=== PATIENT | female | born 1955 | race Caucasian/White ===

== ENCOUNTER 2023-06-30 05:19 | Observation (INO) | payer OTHER ==
[2023-06-30 05:36] VITALS: BMI 23.4
[2023-06-30] MEDS ORDERED: ACETAMINOPHEN 1000 MG/100 ML BAG IVPB ONE (06:11)
[2023-06-30] MEDS ORDERED: FAMOTIDINE 20 MG/50 ML IVPB 20 MG/50 ML MG IVPB ONE ×2 (06:11→07:53)
[2023-06-30 07:32] LABS: BASO % 1.1 % (0-2.0); EOS % 4.7 % (0-4.5); HEMATOCRIT 33.2 % (32.4-45.2); HEMOGLOBIN 10.4 GM/dL (10.7-15.3); LYMPH % 20.6 % (8-40); MCH 27.2 pg (25.7-33.7); MCHC 31.4 g/dl (32.0-36.0); MEAN CELL VOLUME 86.6 fl (80-96); MEAN PLT VOLUME 7.6 fl (7.5-11.1); MONO % 10.8 % (3.8-10.2); NEUT % 62.8 % (42.8-82.8); PLATELET COUNT 264 10^3/uL (134-434); RBC 3.84 M/mm3 (3.60-5.2); WHITE BLOOD COUNT 6.8 K/mm3 (4.0-10.0)
[2023-06-30 07:42] LABS: POTASSIUM 4.2 mmol/L (3.5-5.1)
[2023-06-30 07:44] LABS: ALBUMIN 3.8 g/dl (3.4-5.0); CALCIUM 8.7 mg/dL (8.5-10.1)
[2023-06-30 07:45] LABS: BLOOD UREA NITROGEN 12.2 mg/dL (7-18); INR 1.03 (0.83-1.09)
[2023-06-30 07:47] LABS: CREATININE 0.7 mg/dL (0.55-1.3)
[2023-06-30 07:49] LABS: BILIRUBIN,TOTAL 0.3 mg/dL (0.2-1); TOT PROT 6.7 g/dl (6.4-8.2)
[2023-06-30] MEDS ORDERED: ACETAMINOPHEN INJECTION 100 ML IVPB ONE (07:53)
[2023-06-30 08:46] LABS: ANISOCYTOSIS 2+; MACROCYTOSIS 0
[2023-06-30] MEDS ORDERED: morphine CARPU-JECT 2 MG/1 ML DISP.SYRIN IVPUSH ONE (11:07)
[2023-06-30] MEDS ORDERED: ASPIRIN 81 MG CHEWABLE TABLETS PO ONE ×2 (13:02→15:15)
[2023-06-30] MEDS ORDERED: MAG HYDROX/AL HYDROX/SIMETH 30 ML UNIT-DOSE CUP PO PRN (14:09)
[2023-06-30] MEDS ORDERED: PANTOPRAZOLE SODIUM 40 MG VIAL IVPUSH ONE (14:09)
[2023-06-30] MEDS ORDERED: ALBUTEROL SO4 HFA INHALER IH PRN (14:40)
[2023-06-30] MEDS: CLOPIDOGREL BISULFATE 75 MG TABLET (FP) PO SCH (15:07)
[2023-06-30] MEDS: amLODIPine BESYLATE 10 MG TABLET (FP) PO SCH (15:07)
[2023-06-30] MEDS ORDERED: hydrOXYzine PAMOATE 25 MG CAPSULE (FP) PO SCH (15:30)
[2023-06-30] MEDS ORDERED: PATIENT'S OWN MEDICATION (NON-FORMULARY) (Clonazepam [Clonazepam] 1 MG) PO PRN (16:21)
[2023-06-30] MEDS: clonazePAM 0.5 MG TABLET PO PRN (17:16)
[2023-06-30] MEDS: LURASIDONE HCL 40 MG TABLET PO SCH (17:45)
[2023-06-30 19:45] LABS: N-TERMINAL BNP 35.3 pg/ml (5-125)
[2023-06-30] MEDS: ATORVASTATIN CA 40 MG TABLET (FP) PO SCH (21:55)
[2023-06-30] MEDS: hydrOXYzine PAMOATE 25 MG CAPSULE (FP) PO SCH (21:55)
[2023-06-30] MEDS ORDERED: clonazePAM 0.5 MG TABLET PO SCH (22:00)
[2023-07-01 08:51] LABS: BASO % 0.8 % (0-2.0); HEMATOCRIT 35.3 % (32.4-45.2); LYMPH % 16.7 % (8-40); MCH 27.4 pg (25.7-33.7); MCHC 31.1 g/dl (32.0-36.0); MONO % 7.2 % (3.8-10.2); NEUT % 71.3 % (42.8-82.8); PLATELET COUNT 285 10^3/uL (134-434); RBC 4.01 M/mm3 (3.60-5.2); RDW 20.3 % (11.6-15.6); WHITE BLOOD COUNT 5.5 K/mm3 (4.0-10.0)
[2023-07-01 09:19] LABS: POTASSIUM 4.2 mmol/L (3.5-5.1)
[2023-07-01 09:33] LABS: ALBUMIN 3.5 g/dl (3.4-5.0); BLOOD UREA NITROGEN 11.9 mg/dL (7-18); MAGNESIUM 2.2 mg/dL (1.8-2.4)
[2023-07-01 09:34] LABS: BILIRUBIN,TOTAL 0.3 mg/dL (0.2-1); TOT PROT 6.4 g/dl (6.4-8.2)
[2023-07-01 09:35] LABS: N-TERMINAL BNP 33.1 pg/ml (5-125)
[2023-07-01 09:36] LABS: CREATININE 0.7 mg/dL (0.55-1.3)
[2023-07-01 09:54] LABS: PHOSPHOROUS 4.1 mg/dL (2.5-4.9)
[2023-07-01] MEDS ORDERED: SIMETHICONE 80 MG TAB.CHEW (FP) PO PRN (10:09)
[2023-07-01] MEDS: ENOXAPARIN NA (PORCINE) 40 MG/0.4 ML DISP.SYRIN SQ SCH (10:31)
[2023-07-01] MEDS: LURASIDONE HCL 40 MG TABLET PO SCH (10:31)
[2023-07-01] MEDS: CLOPIDOGREL BISULFATE 75 MG TABLET (FP) PO SCH (10:32)
[2023-07-01] MEDS: amLODIPine BESYLATE 10 MG TABLET (FP) PO SCH (10:32)
[2023-07-01] MEDS: clonazePAM 0.5 MG TABLET PO PRN ×2 (12:01→21:27)
[2023-07-01] MEDS: ATORVASTATIN CA 40 MG TABLET (FP) PO SCH (21:28)
[2023-07-01] MEDS: hydrOXYzine PAMOATE 25 MG CAPSULE (FP) PO SCH (21:28)
[2023-07-02 09:18] LABS: HEMATOCRIT 34.1 % (32.4-45.2); HEMOGLOBIN 11.2 GM/dL (10.7-15.3); MCH 28.4 pg (25.7-33.7); MCHC 32.9 g/dl (32.0-36.0); MEAN CELL VOLUME 86.2 fl (80-96); MEAN PLT VOLUME 7.8 fl (7.5-11.1); PLATELET COUNT 255 10^3/uL (134-434); RBC 3.95 M/mm3 (3.60-5.2); RDW 19.9 % (11.6-15.6)
[2023-07-02] MEDS: amLODIPine BESYLATE 10 MG TABLET (FP) PO SCH (09:23)
[2023-07-02] MEDS: ENOXAPARIN NA (PORCINE) 40 MG/0.4 ML DISP.SYRIN SQ SCH ×2 (09:23→09:28)
[2023-07-02] MEDS: LURASIDONE HCL 40 MG TABLET PO SCH (09:23)
[2023-07-02] MEDS: CLOPIDOGREL BISULFATE 75 MG TABLET (FP) PO SCH (09:23)
[2023-07-02] MEDS: clonazePAM 0.5 MG TABLET PO PRN (09:28)
[2023-07-02 09:35] LABS: POTASSIUM 4.1 mmol/L (3.5-5.1)
[2023-07-02 09:40] LABS: BLOOD UREA NITROGEN 11.1 mg/dL (7-18)
[2023-07-02 09:41] LABS: ALBUMIN 3.7 g/dl (3.4-5.0); CALCIUM 8.8 mg/dL (8.5-10.1); MAGNESIUM 2.1 mg/dL (1.8-2.4)
[2023-07-02 09:43] LABS: CREATININE 0.7 mg/dL (0.55-1.3)
[2023-07-02 09:44] LABS: PHOSPHOROUS 3.8 mg/dL (2.5-4.9)
[2023-07-02 09:45] LABS: BILIRUBIN,TOTAL 0.2 mg/dL (0.2-1); TOT PROT 6.5 g/dl (6.4-8.2)
[2023-07-02] MEDS ORDERED: FAMOTIDINE 20 MG TABLET PO SCH (10:00)
[2023-07-02 15:42] VITALS: BP 165/103; PULSE 116; RESP 19; TEMP 97.8
== END 2023-07-02 17:31 | disposition home or self-care (01) ==
LOC: JER 05:19 → JERBED 12:12 → J4W 14:25
PROVIDERS: ADMIT Internal Medicine; ATTEND Internal Medicine
PROC: 3E033NZ Introduction of Analgesics, Hypnotics, Sedatives into Peripheral Vein, Percutaneous Approach (ICD-10-PCS; principal; 2023-06-30)
PROC: 3E033GC Introduction of Other Therapeutic Substance into Peripheral Vein, Percutaneous Approach (ICD-10-PCS; 2023-06-30)
DX: R07.89 Other chest pain (principal); R10.9 Unspecified abdominal pain; J96.10 Chronic respiratory failure, unspecified whether with hypoxia or hypercapnia; I25.10 Atherosclerotic heart disease of native coronary artery without angina pectoris; J44.9 Chronic obstructive pulmonary disease, unspecified; E78.5 Hyperlipidemia, unspecified; F41.8 Other specified anxiety disorders; F20.9 Schizophrenia, unspecified; Z87.01 Personal history of pneumonia (recurrent); I25.2 Old myocardial infarction; Z90.49 Acquired absence of other specified parts of digestive tract; I10 Essential (primary) hypertension; Z99.81 Dependence on supplemental oxygen; Z86.16 Personal history of COVID-19; K59.00 Constipation, unspecified; Z87.891 Personal history of nicotine dependence; Z88.0 Allergy status to penicillin
CPT/HCPCS: 36415; 71045-TC-FY; 74177-TC; 74178-TC; 80053; 80061; 83036; 83690; 83735; 83880; 84100; 84436; 84443; 84484; 85025; 85027; 85610; 86140; 87045; 87046; 87205; 87324; 87449; 93005; 93010; 93306-TC; 96365; 96375; 99285-25; G0378; Q9967

== ENCOUNTER 2023-11-14 12:59 | Inpatient (IN) | payer OTHER ==
[2023-11-14] MEDS ORDERED: DEXAMETHASONE SOD PHOSPHATE 10 MG/1 ML VIAL IVPUSH ONE (13:00)
[2023-11-14] MEDS ORDERED: DEXAMETHASONE SOD PHOSPHATE 10 MG/1 ML VIAL ONE (13:02)
[2023-11-14] MEDS: ALBUTEROL SO4 2.5/IPRATROPIUM 0.5 INH SOL 3 ML VIAL.NEB. NEB SCH ×4 (13:10→14:35)
[2023-11-14] MEDS ORDERED: ALBUTEROL SO4 2.5/IPRATROPIUM 0.5 INH SOL 3 ML VIAL.NEB. NEB ONE (14:06)
[2023-11-14 14:36] LABS: HEMATOCRIT 37.5 % (32.4-45.2); HEMOGLOBIN 12.5 G/dL (10.7-15.3); MCH 30.7 pg (25.7-33.7); MCHC 33.2 g/dl (32.0-36.0); MEAN CELL VOLUME 92.7 fl (80-96); MEAN PLT VOLUME 8.2 fl (7.5-11.1); PLATELET COUNT 318.9 10^3/uL (134-434); RBC 4.05 10^6/uL (3.60-5.2); RDW 14.7 % (11.6-15.6); WHITE BLOOD COUNT 10.2 10^3/uL (4.0-10.8)
[2023-11-14 14:51] LABS: ALBUMIN 4.4 g/dl (3.4-5.0); BILIRUBIN,TOTAL 0.5 mg/dl (0.2-1); CALCIUM 9.5 mg/dl (8.5-10.1); CREATININE 0.7 mg/dl (0.6-1.3)
[2023-11-14 15:02] LABS: POTASSIUM 5.6 mmol/L (3.5-5.1)
[2023-11-14 15:15] LABS: PLATELET ESTIMATE SLT INCREASE
[2023-11-14] MEDS ORDERED: clonazePAM 0.5 MG TABLET PO ONE (16:22)
[2023-11-14 16:29] LABS: CALCIUM 9.3 mg/dl (8.5-10.1); CREATININE 0.8 mg/dl (0.6-1.3); POTASSIUM 3.5 mmol/L (3.5-5.1)
[2023-11-14] MEDS ORDERED: clonazePAM 0.5 MG TABLET ONE (16:39)
[2023-11-14 18:34] VITALS: BMI 24.4
[2023-11-14] MEDS ORDERED: ALBUTEROL SO4 2.5/IPRATROPIUM 0.5 INH SOL 3 ML VIAL.NEB. NEB PRN (20:30)
[2023-11-14] MEDS: ATORVASTATIN CA 40 MG TABLET (FP) PO SCH (21:28)
[2023-11-15] MEDS ORDERED: hydrOXYzine PAMOATE 50 MG CAPSULE (FP) PO ONE (00:40)
[2023-11-15] MEDS ORDERED: hydrOXYzine PAMOATE 25 MG CAPSULE (FP) PO ONE (01:07)
[2023-11-15] MEDS: LOSARTAN POTASSIUM 50 MG TABLET PO SCH (09:29)
[2023-11-15] MEDS: CLOPIDOGREL BISULFATE 75 MG TABLET (FP) PO SCH (09:29)
[2023-11-15] MEDS: amLODIPine BESYLATE 10 MG TABLET (FP) PO SCH (09:29)
[2023-11-15] MEDS: FLUTICASONE/UMECLIDIN/VILANTER(200-62.5-25 TRELEGY ELLIPTA) INAHLER IH SCH (09:29)
[2023-11-15] MEDS: clonazePAM 0.5 MG TABLET PO PRN ×4 (09:29→21:23)
[2023-11-15] MEDS: methylPREDNISolone NA SUCC 40 MG/1 ML VIAL IVPUSH SCH ×3 (09:29→21:21)
[2023-11-15] MEDS: ENOXAPARIN NA (PORCINE) 40 MG/0.4 ML DISP.SYRIN SQ SCH (09:30)
[2023-11-15] MEDS: AZITHROMYCIN IVPB 500 MG/250 ML BAG IVPB SCH (09:30)
[2023-11-15] MEDS: LURASIDONE HCL 40 MG TABLET PO SCH (10:04)
[2023-11-15] MEDS: POLYETHYLENE GLYCOL (HEALTHYLAX) 3350 17 GM PACKET PO SCH (12:27)
[2023-11-15] MEDS: ACETAMINOPHEN 325 MG TABLET (FP) PO PRN ×2 (13:12→21:58)
[2023-11-15 13:46] LABS: CALCIUM 9.3 mg/dl (8.5-10.1); CREATININE 0.7 mg/dl (0.6-1.3); POTASSIUM 4.2 mmol/L (3.5-5.1)
[2023-11-15 14:11] LABS: HEMATOCRIT 32.2 % (32.4-45.2); HEMOGLOBIN 10.3 G/dL (10.7-15.3); MCH 29.7 pg (25.7-33.7); MEAN CELL VOLUME 92.7 fl (80-96); MEAN PLT VOLUME 7.8 fl (7.5-11.1); PLATELET COUNT 311.7 10^3/uL (134-434); RBC 3.47 10^6/uL (3.60-5.2); RDW 15.4 % (11.6-15.6); WHITE BLOOD COUNT 10.2 10^3/uL (4.0-10.8)
[2023-11-15 14:46] LABS: ANISOCYTOSIS 1+; PLATELET ESTIMATE ADEQUATE
[2023-11-15] MEDS: ALBUTEROL SO4 2.5/IPRATROPIUM 0.5 INH SOL 3 ML VIAL.NEB. NEB SCH ×2 (16:07→21:22)
[2023-11-15] MEDS: ATORVASTATIN CA 40 MG TABLET (FP) PO SCH (21:23)
[2023-11-15] MEDS: hydrOXYzine PAMOATE 25 MG CAPSULE (FP) PO SCH (21:24)
[2023-11-15] MEDS ORDERED: TEMAZEPAM 15 MG CAPSULE PO SCH (22:00)
[2023-11-16] MEDS: methylPREDNISolone NA SUCC 40 MG/1 ML VIAL IVPUSH SCH ×4 (05:50→21:47)
[2023-11-16] MEDS: ALBUTEROL SO4 2.5/IPRATROPIUM 0.5 INH SOL 3 ML VIAL.NEB. NEB SCH ×4 (08:00→21:48)
[2023-11-16 09:00] LABS: BILIRUBIN,TOTAL 0.3 mg/dl (0.2-1); CALCIUM 9.1 mg/dl (8.5-10.1); CREATININE 0.8 mg/dl (0.6-1.3); POTASSIUM 4.1 mmol/L (3.5-5.1); TOT PROT 5.7 g/dl (6.4-8.2)
[2023-11-16 09:26] LABS: BASO % 0.1 % (0-2.0); HEMATOCRIT 30.3 % (32.4-45.2); HEMOGLOBIN 9.8 GM/dL (10.7-15.3); LYMPH % 10.7 % (8-40); MCH 29.7 pg (25.7-33.7); MCHC 32.3 g/dl (32.0-36.0); MEAN CELL VOLUME 91.9 fl (80-96); MEAN PLT VOLUME 7.4 fl (7.5-11.1); MONO % 6.1 % (3.8-10.2); NEUT % 83.1 % (42.8-82.8); PLATELET COUNT 348 10^3/uL (134-434); RDW 14.7 % (11.6-15.6); WHITE BLOOD COUNT 15.4 K/mm3 (4.0-10.0)
[2023-11-16] MEDS: amLODIPine BESYLATE 10 MG TABLET (FP) PO SCH (09:37)
[2023-11-16] MEDS: LURASIDONE HCL 40 MG TABLET PO SCH (09:37)
[2023-11-16] MEDS: CLOPIDOGREL BISULFATE 75 MG TABLET (FP) PO SCH (09:37)
[2023-11-16] MEDS: LOSARTAN POTASSIUM 50 MG TABLET PO SCH (09:37)
[2023-11-16] MEDS: ENOXAPARIN NA (PORCINE) 40 MG/0.4 ML DISP.SYRIN SQ SCH (09:38)
[2023-11-16] MEDS: AZITHROMYCIN IVPB 500 MG/250 ML BAG IVPB SCH (09:38)
[2023-11-16] MEDS: POLYETHYLENE GLYCOL (HEALTHYLAX) 3350 17 GM PACKET PO SCH (09:38)
[2023-11-16] MEDS: FLUTICASONE/UMECLIDIN/VILANTER(200-62.5-25 TRELEGY ELLIPTA) INAHLER IH SCH (09:39)
[2023-11-16] MEDS: clonazePAM 0.5 MG TABLET PO PRN ×2 (10:19→21:47)
[2023-11-16] MEDS: hydrOXYzine PAMOATE 25 MG CAPSULE (FP) PO SCH (21:47)
[2023-11-16] MEDS: ATORVASTATIN CA 40 MG TABLET (FP) PO SCH (21:48)
[2023-11-17] MEDS: methylPREDNISolone NA SUCC 40 MG/1 ML VIAL IVPUSH SCH ×3 (05:59→14:07)
[2023-11-17] MEDS: ALBUTEROL SO4 2.5/IPRATROPIUM 0.5 INH SOL 3 ML VIAL.NEB. NEB SCH ×2 (09:39→14:02)
[2023-11-17 09:40] LABS: ALBUMIN 3.7 g/dl (3.4-5.0); BILIRUBIN,TOTAL 0.3 mg/dl (0.2-1); CALCIUM 8.9 mg/dl (8.5-10.1); CREATININE 0.7 mg/dl (0.6-1.3); POTASSIUM 3.9 mmol/L (3.5-5.1); TOT PROT 5.3 g/dl (6.4-8.2)
[2023-11-17] MEDS: clonazePAM 0.5 MG TABLET PO PRN (09:41)
[2023-11-17] MEDS: amLODIPine BESYLATE 10 MG TABLET (FP) PO SCH (09:41)
[2023-11-17] MEDS: LURASIDONE HCL 40 MG TABLET PO SCH (09:41)
[2023-11-17] MEDS: LOSARTAN POTASSIUM 50 MG TABLET PO SCH (09:41)
[2023-11-17] MEDS: POLYETHYLENE GLYCOL (HEALTHYLAX) 3350 17 GM PACKET PO SCH (09:42)
[2023-11-17] MEDS: CLOPIDOGREL BISULFATE 75 MG TABLET (FP) PO SCH (09:42)
[2023-11-17] MEDS: ENOXAPARIN NA (PORCINE) 40 MG/0.4 ML DISP.SYRIN SQ SCH (09:42)
[2023-11-17] MEDS: AZITHROMYCIN IVPB 500 MG/250 ML BAG IVPB SCH (09:42)
[2023-11-17] MEDS: FLUTICASONE/UMECLIDIN/VILANTER(200-62.5-25 TRELEGY ELLIPTA) INAHLER IH SCH (09:43)
[2023-11-17 09:47] LABS: BASO % 0.5 % (0-2.0); EOS % 3.8 % (0-4.5); HEMATOCRIT 29.5 % (32.4-45.2); HEMOGLOBIN 9.5 GM/dL (10.7-15.3); LYMPH % 28.5 % (8-40); MCH 29.8 pg (25.7-33.7); MCHC 32.4 g/dl (32.0-36.0); MEAN PLT VOLUME 7.5 fl (7.5-11.1); MONO % 9.2 % (3.8-10.2); PLATELET COUNT 299 10^3/uL (134-434); RDW 14.9 % (11.6-15.6); WHITE BLOOD COUNT 7.8 K/mm3 (4.0-10.0)
[2023-11-17 14:42] VITALS: BP 116/56; PULSE 80; RESP 18; TEMP 98.6
== END 2023-11-17 18:30 | disposition home or self-care (01) | DRG 191 ==
LOC: FER 12:59 → FM/S 15:19
PROVIDERS: ADMIT Internal Medicine
DX: J44.1 Chronic obstructive pulmonary disease with (acute) exacerbation (principal); J96.11 Chronic respiratory failure with hypoxia; J96.12 Chronic respiratory failure with hypercapnia; E78.5 Hyperlipidemia, unspecified; F20.9 Schizophrenia, unspecified; I10 Essential (primary) hypertension; I25.10 Atherosclerotic heart disease of native coronary artery without angina pectoris; F41.8 Other specified anxiety disorders
CPT/HCPCS: 0241U-QW; 36415; 71045-TC-FY; 80048; 80053; 81003; 84484; 85025; 85027; 87086; 93005; 94640; 97116-GP; 97162-GP; 99285-25; J1100

== ENCOUNTER 2024-01-30 21:46 | Inpatient (IN) | payer OTHER ==
[2024-01-30] MEDS: ALBUTEROL SO4 2.5/IPRATROPIUM 0.5 INH SOL 3 ML VIAL.NEB. NEB SCH (22:30)
[2024-01-30 22:32] VITALS: BMI 26.2
[2024-01-30] MEDS ORDERED: DEXAMETHASONE SOD PHOSPHATE 10 MG/1 ML VIAL ONE (22:37)
[2024-01-30] MEDS ORDERED: ALBUTEROL SO4 2.5/IPRATROPIUM 0.5 INH SOL 3 ML VIAL.NEB. NEB ONE (22:37)
[2024-01-30] MEDS: DEXAMETHASONE SOD PHOSPHATE 20 MG/5 ML VIAL IVPB ONE (23:00)
[2024-01-30 23:19] LABS: VENOUS BASE EXCESS 2.2 mmol/L (-2-2); VENOUS O2 SATURATION 91.1 % (70-80); VENOUS PCO2 53.6 mmHg (38-52); VENOUS PH 7.347 (7.310-7.410)
[2024-01-30 23:20] LABS: BASO % 0.7 % (0-2.0); EOS % 2.2 % (0-4.5); HEMATOCRIT 33.6 % (32.4-45.2); HEMOGLOBIN 11.1 GM/dL (10.7-15.3); LYMPH % 20.6 % (8-40); MCH 29.9 pg (25.7-33.7); MEAN CELL VOLUME 90.6 fl (80-96); MEAN PLT VOLUME 7.6 fl (7.5-11.1); MONO % 8.9 % (3.8-10.2); NEUT % 67.6 % (42.8-82.8); PLATELET COUNT 313 10^3/uL (134-434); RBC 3.71 M/mm3 (3.60-5.2); RDW 15.2 % (11.6-15.6); WHITE BLOOD COUNT 8.4 K/mm3 (4.0-10.0)
[2024-01-30] MEDS: ALBUTEROL SO4 2.5/IPRATROPIUM 0.5 INH SOL 3 ML VIAL.NEB. NEB ONE (23:20)
[2024-01-30] MEDS ORDERED: ALBUTEROL SO4 0.5 % INH SOLN 2.5 MG/0.5 ML VIAL.NEB. NEB ONE (23:41)
[2024-01-30] MEDS ORDERED: diazePAM CARPU-JECT 10 MG/2 ML DISP.SYRIN ONE (23:48)
[2024-01-30] MEDS ORDERED: MAGNESIUM 1GM/D5W - 1 GM/100 ML IVPB IVPB ONE (23:49)
[2024-01-30] MEDS ORDERED: TERBUTALINE SULFATE 1 MG/1 ML VIAL SQ ONE (23:49)
[2024-01-30] MEDS: diazePAM CARPU-JECT 10 MG/2 ML DISP.SYRIN IVPUSH ONE (23:50)
[2024-01-30 23:52] LABS: POTASSIUM 4.5 mmol/L (3.5-5.1)
[2024-01-30 23:53] LABS: N-TERMINAL BNP 45.4 pg/ml (5-125)
[2024-01-31 00:06] LABS: ALBUMIN 3.3 g/dl (3.4-5.0); CALCIUM 8.6 mg/dL (8.5-10.1)
[2024-01-31 00:07] LABS: BLOOD UREA NITROGEN 24.4 mg/dL (7-18)
[2024-01-31 00:09] LABS: CREATININE 0.7 mg/dL (0.55-1.3)
[2024-01-31 00:11] LABS: BILIRUBIN,TOTAL 0.2 mg/dL (0.2-1); TOT PROT 6.5 g/dl (6.4-8.2)
[2024-01-31] MEDS: MAGNESIUM 1GM/D5W - 1 GM/100 ML IVPB IVPB ONE (00:17)
[2024-01-31] MEDS: TERBUTALINE SULFATE 1 MG/1 ML VIAL SQ ONE (00:17)
[2024-01-31] MEDS: BUDESONIDE 0.5 MG/2 ML INH SUSP VIAL NEB ONE (00:24)
[2024-01-31] MEDS ORDERED: ACETAMINOPHEN 325 MG TABLET (FP) PO PRN (01:41)
[2024-01-31] MEDS ORDERED: PATIENT'S OWN MEDICATION (NON-FORMULARY) (Clonazepam [Clonazepam] 1 MG Tablet) PO PRN (01:43)
[2024-01-31] MEDS ORDERED: SODIUM CHLORIDE NASAL SPRAY 44 ML BOTTLE NS PRN (01:52)
[2024-01-31] MEDS ORDERED: hydrOXYzine PAMOATE 50 MG CAPSULE (FP) ONE (02:55)
[2024-01-31] MEDS ORDERED: clonazePAM 0.5 MG TABLET ONE (02:55)
[2024-01-31] MEDS: hydrOXYzine PAMOATE 50 MG CAPSULE (FP) PO ONE (03:02)
[2024-01-31] MEDS: clonazePAM 0.5 MG TABLET PO PRN (03:03)
[2024-01-31] MEDS ORDERED: ALBUTEROL SO4 2.5/IPRATROPIUM 0.5 INH SOL 3 ML VIAL.NEB. NEB ONE (07:32)
[2024-01-31] MEDS: ALBUTEROL SO4 2.5/IPRATROPIUM 0.5 INH SOL 3 ML VIAL.NEB. NEB SCH (07:39)
[2024-01-31] MEDS: methylPREDNISolone NA SUCC 40 MG/1 ML VIAL IVPUSH SCH (09:19)
[2024-01-31] MEDS: LURASIDONE HCL 40 MG TABLET PO SCH (09:19)
[2024-01-31] MEDS: CLOPIDOGREL BISULFATE 75 MG TABLET (FP) PO SCH (09:21)
[2024-01-31] MEDS: guaiFENesin/D-METHORPHAN TAB.ER.12H PO SCH (09:22)
[2024-01-31] MEDS: LOSARTAN POTASSIUM 50 MG TABLET PO SCH (09:22)
[2024-01-31] MEDS: amLODIPine BESYLATE 10 MG TABLET (FP) PO SCH (09:22)
[2024-01-31] MEDS: LORATADINE 10 MG TABLET PO SCH (09:22)
[2024-01-31] MEDS: TRIAMCINOLONE ACET 0.1% OINT 15 GM TUBE TP SCH (09:23)
[2024-01-31] MEDS ORDERED: diazePAM 2 MG TABLET ONE (11:23)
[2024-01-31] MEDS: diazePAM 2 MG TABLET PO ONE (11:23)
[2024-01-31] MEDS: diazePAM 2 MG TABLET PO PRN (16:25)
[2024-01-31] MEDS: FLUTICASONE/UMECLIDIN/VILANTER(200-62.5-25 TRELEGY ELLIPTA) INAHLER IH SCH (16:27)
[2024-01-31] MEDS: PNEUMOC 20-VAL CONJ-DIP CRM/PF 0.5 ML SYRINGE IM ONE (16:51)
[2024-01-31] MEDS: ENOXAPARIN NA (PORCINE) 40 MG/0.4 ML DISP.SYRIN SQ SCH (18:49)
[2024-01-31] MEDS ORDERED: hydrOXYzine PAMOATE 25 MG CAPSULE (FP) PO ONE (21:15)
[2024-01-31] MEDS: ATORVASTATIN CA 40 MG TABLET (FP) PO SCH (22:00)
[2024-01-31] MEDS: hydrOXYzine PAMOATE 50 MG CAPSULE (FP) PO SCH (22:00)
[2024-01-31] MEDS ORDERED: DEXAMETHASONE SOD PHOSPHATE 10 MG/1 ML VIAL IVPUSH ONE (22:18)
[2024-02-01 08:51] LABS: HEMATOCRIT 30.6 % (32.4-45.2); HEMOGLOBIN 10.1 GM/dL (10.7-15.3); MCH 30.3 pg (25.7-33.7); MCHC 33.2 g/dl (32.0-36.0); MEAN CELL VOLUME 91.2 fl (80-96); MEAN PLT VOLUME 7.6 fl (7.5-11.1); PLATELET COUNT 289 10^3/uL (134-434); RBC 3.35 M/mm3 (3.60-5.2); WHITE BLOOD COUNT 16.1 K/mm3 (4.0-10.0)
[2024-02-01 09:00] LABS: INR 0.94 (0.83-1.09); PROTHROMBIN TIME (PATIENT) 10.9 SEC (9.7-13.0)
[2024-02-01 09:03] LABS: ACTIVATED PTT 32.6 SECONDS (25.2-36.5)
[2024-02-01 09:08] LABS: POTASSIUM 4.3 mmol/L (3.5-5.1)
[2024-02-01 09:09] LABS: CALCIUM 8.9 mg/dL (8.5-10.1)
[2024-02-01 09:10] LABS: BLOOD UREA NITROGEN 26.8 mg/dL (7-18); MAGNESIUM 2.6 mg/dL (1.8-2.4)
[2024-02-01 09:13] LABS: CREATININE 0.6 mg/dL (0.55-1.3); PHOSPHOROUS 3.4 mg/dL (2.5-4.9)
[2024-02-01 10:23] LABS: ANISOCYTOSIS 0; MACROCYTOSIS 0
[2024-02-01] MEDS: PANTOPRAZOLE 40 MG TABLET PO SCH (11:51)
[2024-02-01] MEDS: predniSONE 20 MG TABLET (UD) PO SCH (12:59)
[2024-02-01] MEDS: AZITHROMYCIN IVPB 250 MG in DEXTROSE 5%-WATER - 250 ML IVPB SCH (20:36)
[2024-02-01] MEDS ORDERED: hydrOXYzine PAMOATE 25 MG CAPSULE (FP) PO ONE ×2 (21:14→22:19)
[2024-02-02] MEDS: POLYETHYLENE GLYCOL (HEALTHYLAX) 3350 17 GM PACKET PO SCH (16:36)
[2024-02-02] MEDS ORDERED: hydrOXYzine PAMOATE 25 MG CAPSULE (FP) PO ONE (21:22)
[2024-02-02] MEDS: DOCUSATE SODIUM 100 MG CAPSULE (FP) PO PRN (22:46)
[2024-02-02] MEDS: SENNOSIDES/DOCUSATE COMBO (SENNA PLUS) TABLET (UD) PO SCH (22:46)
[2024-02-03 06:56] VITALS: RESP 18; TEMP 98.6
[2024-02-03 08:13] LABS: BASO % 0.2 % (0-2.0); EOS % 0.7 % (0-4.5); HEMOGLOBIN 11.1 GM/dL (10.7-15.3); LYMPH % 22.6 % (8-40); MCH 29.7 pg (25.7-33.7); MCHC 32.6 g/dl (32.0-36.0); MEAN CELL VOLUME 91.3 fl (80-96); MEAN PLT VOLUME 7.7 fl (7.5-11.1); MONO % 9.8 % (3.8-10.2); NEUT % 66.7 % (42.8-82.8); PLATELET COUNT 332 10^3/uL (134-434); RBC 3.72 M/mm3 (3.60-5.2); RDW 15.5 % (11.6-15.6); WHITE BLOOD COUNT 10.7 K/mm3 (4.0-10.0)
[2024-02-03 09:01] LABS: POTASSIUM 4.1 mmol/L (3.5-5.1)
[2024-02-03 09:09] LABS: CREATININE 0.7 mg/dL (0.55-1.3)
[2024-02-03] MEDS: SODIUM PHOSPHATE/NA BIPHOS 133 ML ENEMA RC ONE (10:59)
[2024-02-03] MEDS: ASPIRIN 81 MG CHEWABLE TABLETS PO SCH (14:11)
[2024-02-03 14:27] VITALS: BP 115/91; PULSE 101
== END 2024-02-03 18:37 | disposition home health service (06) | DRG 190 ==
LOC: JER 21:46 → JERBED 01-31 → J7W 01-31 14:34
PROVIDERS: ADMIT Internal Medicine; ATTEND Internal Medicine
DX: J44.1 Chronic obstructive pulmonary disease with (acute) exacerbation (principal); J96.21 Acute and chronic respiratory failure with hypoxia; I50.32 Chronic diastolic (congestive) heart failure; Z99.81 Dependence on supplemental oxygen; E78.5 Hyperlipidemia, unspecified; F20.9 Schizophrenia, unspecified; F32.A Depression, unspecified; F41.9 Anxiety disorder, unspecified; Z86.16 Personal history of COVID-19; G47.30 Sleep apnea, unspecified; I25.10 Atherosclerotic heart disease of native coronary artery without angina pectoris; I11.0 Hypertensive heart disease with heart failure
CPT/HCPCS: 0241U-QW; 36415; 71046-TC-FY; 80048; 80053; 82803; 83735; 83880; 84100; 84484; 85025; 85610; 85730; 93005; 93010; 94010; 94640; 97116-GP; 97162-GP; 99285-25

== ENCOUNTER 2024-06-28 20:13 | Inpatient (IN) | payer OTHER ==
[2024-06-28] MEDS: ALBUTEROL SO4 2.5/IPRATROPIUM 0.5 INH SOL 3 ML VIAL.NEB. NEB ONE (20:58)
[2024-06-28] MEDS ORDERED: ALBUTEROL SO4 2.5/IPRATROPIUM 0.5 INH SOL 3 ML VIAL.NEB. NEB ONE (21:00)
[2024-06-28] MEDS ORDERED: methylPREDNISolone NA SUCC 125 MG/2 ML VIAL ONE ×2 (21:00→22:49)
[2024-06-28] MEDS ORDERED: MAGNESIUM SULFATE IN WATER 2 GM/50 ML IVPB IVPB ONE (21:00)
[2024-06-28 21:25] LABS: EOS % 3.2 % (0-4.5); HEMATOCRIT 33.7 % (32.4-45.2); HEMOGLOBIN 11.2 GM/dL (10.7-15.3); LYMPH % 25.6 % (8-40); MCHC 33.3 g/dl (32.0-36.0); MEAN PLT VOLUME 7.1 fl (7.5-11.1); MONO % 9.3 % (3.8-10.2); NEUT % 60.9 % (42.8-82.8); PLATELET COUNT 311 10^3/uL (134-434); RBC 3.75 M/mm3 (3.60-5.2); RDW 14.4 % (11.6-15.6); WHITE BLOOD COUNT 7.6 K/mm3 (4.0-10.0)
[2024-06-28] MEDS: methylPREDNISolone NA SUCC 125 MG/2 ML VIAL IVPUSH ONE ×2 (21:26→22:55)
[2024-06-28] MEDS: MAGNESIUM SULF 50% (8.12 MEQ/2 ML-1 GM VIAL) IVPB ONE (21:26)
[2024-06-28 21:41] LABS: POTASSIUM 4.2 mmol/L (3.5-5.1)
[2024-06-28 21:43] LABS: CALCIUM 8.9 mg/dL (8.5-10.1)
[2024-06-28 21:44] LABS: ALBUMIN 3.5 g/dl (3.4-5.0)
[2024-06-28] MEDS ORDERED: ACETAMINOPHEN INJECTION 100 ML IVPB ONE (21:45)
[2024-06-28 21:47] LABS: CREATININE 0.9 mg/dL (0.55-1.3); VENOUS BASE EXCESS 3.6 mmol/L (-2-2); VENOUS O2 SATURATION 92.9 % (70-80); VENOUS PCO2 57.8 mmHg (38-52); VENOUS PH 7.343 (7.310-7.410)
[2024-06-28 21:48] LABS: TOT PROT 6.4 g/dl (6.4-8.2)
[2024-06-28] MEDS: ACETAMINOPHEN 1000 MG/100 ML BAG IVPB ONE (21:48)
[2024-06-28 21:49] LABS: BILIRUBIN,TOTAL 0.1 mg/dL (0.2-1)
[2024-06-28 23:54] LABS: EPI CELLS 9 /uL (0-25.1); HYALINE CASTS 1 /uL (0-3.1); PH,URINE 5.5 (5.0-8.0); URINE APPEARANCE CLEAR; URINE BACTERIA 69 /uL (0-1359); URINE BILIRUBIN NEGATIVE (NEGATIVE); URINE COLOR YELLOW; URINE GLUCOSE (UA) NEGATIVE (NEGATIVE); URINE KETONE NEGATIVE (NEGATIVE); URINE LEUK ESTERASE 1+ (NEGATIVE); URINE NITRITE NEGATIVE (NEGATIVE); URINE PROTEIN NEGATIVE (NEGATIVE); URINE RBC 29 /uL (0-23.9); URINE UROBILINOGEN 0.2 mg/dL (0.2-1.0); URINE WBC 41 /uL (0-25.8)
[2024-06-29] MEDS: methylPREDNISolone NA SUCC 40 MG/1 ML VIAL IVPUSH SCH (02:41)
[2024-06-29 03:22] VITALS: BMI 26.9
[2024-06-29] MEDS: hydrOXYzine PAMOATE 25 MG CAPSULE (FP) PO ONE (03:27)
[2024-06-29] MEDS: clonazePAM 0.5 MG TABLET PO SCH (03:27)
[2024-06-29] MEDS: SODIUM PHOSPHATE/NA BIPHOS 133 ML ENEMA RC ONE (04:51)
[2024-06-29] MEDS: POLYETHYLENE GLYCOL (HEALTHYLAX) 3350 17 GM PACKET PO SCH (06:52)
[2024-06-29] MEDS: ALBUTEROL SO4 2.5/IPRATROPIUM 0.5 INH SOL 3 ML VIAL.NEB. NEB SCH (07:35)
[2024-06-29 08:31] LABS: HEMATOCRIT 33.4 % (32.4-45.2); MCH 30.3 pg (25.7-33.7); MCHC 32.9 g/dl (32.0-36.0); MEAN CELL VOLUME 92.1 fl (80-96); MEAN PLT VOLUME 7.5 fl (7.5-11.1); PLATELET COUNT 314 10^3/uL (134-434); RBC 3.62 M/mm3 (3.60-5.2); RDW 14.2 % (11.6-15.6); WHITE BLOOD COUNT 8.2 K/mm3 (4.0-10.0)
[2024-06-29 08:44] LABS: POTASSIUM 4.3 mmol/L (3.5-5.1)
[2024-06-29 08:51] LABS: CALCIUM 8.5 mg/dL (8.5-10.1)
[2024-06-29 08:52] LABS: ALBUMIN 3.7 g/dl (3.4-5.0); BLOOD UREA NITROGEN 14.6 mg/dL (7-18); MAGNESIUM 2.7 mg/dL (1.8-2.4); PHOSPHOROUS 3.4 mg/dL (2.5-4.9)
[2024-06-29 08:53] LABS: BILIRUBIN,TOTAL 0.2 mg/dL (0.2-1); TOT PROT 6.8 g/dl (6.4-8.2)
[2024-06-29 08:55] LABS: CREATININE 0.9 mg/dL (0.55-1.3)
[2024-06-29 09:17] LABS: ANISOCYTOSIS 0; HELMET CELLS 0; HOWELL-JOLLY BODIES 0; MACROCYTOSIS 0; OVALOCYTE 0; ROULEAU 0; SICKELED CELLS 0; TARGET CELLS 0; TEAR DROP CELLS 0; TOXIC GRANULATION 0
[2024-06-29] MEDS: ALBUTEROL SO4 HFA INHALER IH SCH (09:28)
[2024-06-29] MEDS: CLOPIDOGREL BISULFATE 75 MG TABLET (FP) PO SCH (09:29)
[2024-06-29] MEDS: amLODIPine BESYLATE 10 MG TABLET (FP) PO SCH (09:29)
[2024-06-29] MEDS: LOSARTAN POTASSIUM 50 MG TABLET PO SCH (09:30)
[2024-06-29] MEDS: ENOXAPARIN NA (PORCINE) 40 MG/0.4 ML DISP.SYRIN SQ SCH (09:30)
[2024-06-29] MEDS ORDERED: DOXYCYCLINE HYCLATE 100 MG CAPSULE PO SCH (10:00)
[2024-06-29] MEDS ORDERED: BUDESONIDE/FORMETEROL FUMARATE 160/4.5 mcg INHALER IH SCH (10:00)
[2024-06-29] MEDS: ALBUTEROL SO4 2.5/IPRATROPIUM 0.5 INH SOL 3 ML VIAL.NEB. NEB PRN (11:30)
[2024-06-29] MEDS: DOCUSATE SODIUM 100 MG CAPSULE (FP) PO ONE (11:32)
[2024-06-29 12:13] LABS: ARTERIAL BLD GAS O2 SATURATION 97.8 % (95-98); ARTERIAL BLOOD GAS BASE EXCESS -3.7 mmol/L (-2-2); ARTERIAL BLOOD GAS PO2 115.7 mmHg (80-100); ARTERIAL BLOOD GAS pH 7.307 (7.350-7.450)
[2024-06-29] MEDS: FLUTICASONE/UMECLIDIN/VILANTER(200-62.5-25 TRELEGY ELLIPTA) INAHLER IH SCH (12:13)
[2024-06-29] MEDS: ALBUTEROL SO4 0.083% IH SOL 2.5 MG/3 ML VIAL.NEB. NEB SCH (15:41)
[2024-06-29] MEDS ORDERED: ALBUTEROL SO4 2.5/IPRATROPIUM 0.5 INH SOL 3 ML VIAL.NEB. NEB SCH (16:00)
[2024-06-29] MEDS: LACTULOSE 20 GM/30 ML UDC (FOR ORAL USE ONLY) PO ONE (17:46)
[2024-06-29] MEDS: DOXYCYCLINE HYCLATE 100 MG CAPSULE PO SCH (17:47)
[2024-06-29] MEDS: SENNOSIDES 8.8 MG/5 ML SYRUP PO SCH (21:45)
[2024-06-29] MEDS: hydrOXYzine PAMOATE 25 MG CAPSULE (FP) PO SCH (21:45)
[2024-06-29] MEDS: ATORVASTATIN CA 40 MG TABLET (FP) PO SCH (21:45)
[2024-06-29] MEDS: DOCUSATE SODIUM 100 MG CAPSULE (FP) PO SCH (21:46)
[2024-06-29] MEDS: ACETAMINOPHEN 1000 MG/100 ML BAG IVPB PRN (22:15)
[2024-06-30 07:12] LABS: HEMATOCRIT 31.3 % (32.4-45.2); HEMOGLOBIN 10.1 GM/dL (10.7-15.3); MCH 29.5 pg (25.7-33.7); MCHC 32.2 g/dl (32.0-36.0); MEAN CELL VOLUME 91.5 fl (80-96); MEAN PLT VOLUME 7.5 fl (7.5-11.1); PLATELET COUNT 314 10^3/uL (134-434); RBC 3.42 M/mm3 (3.60-5.2); RDW 14.5 % (11.6-15.6); WHITE BLOOD COUNT 17.6 K/mm3 (4.0-10.0)
[2024-06-30 07:31] LABS: POTASSIUM 4.3 mmol/L (3.5-5.1)
[2024-06-30 07:32] LABS: CALCIUM 9.3 mg/dL (8.5-10.1)
[2024-06-30 07:33] LABS: BLOOD UREA NITROGEN 19.1 mg/dL (7-18); MAGNESIUM 2.6 mg/dL (1.8-2.4)
[2024-06-30 07:36] LABS: CREATININE 0.8 mg/dL (0.55-1.3); PHOSPHOROUS 3.6 mg/dL (2.5-4.9)
[2024-06-30] MEDS ORDERED: DOXYCYCLINE HYCLATE 100 MG CAPSULE PO SCH (10:45)
[2024-06-30] MEDS ORDERED: POLYETHYLENE GLYCOL (HEALTHYLAX) 3350 17 GM PACKET PO PRN (16:23)
[2024-06-30] MEDS: guaiFENesin/D-METHORPHAN TAB.ER.12H PO SCH (22:12)
[2024-07-01 08:14] LABS: HEMATOCRIT 32.7 % (32.4-45.2); HEMOGLOBIN 10.6 GM/dL (10.7-15.3); MCH 29.6 pg (25.7-33.7); MCHC 32.2 g/dl (32.0-36.0); MEAN CELL VOLUME 91.9 fl (80-96); MEAN PLT VOLUME 7.9 fl (7.5-11.1); PLATELET COUNT 302 10^3/uL (134-434); RBC 3.56 M/mm3 (3.60-5.2); RDW 14.5 % (11.6-15.6); WHITE BLOOD COUNT 15.5 K/mm3 (4.0-10.0)
[2024-07-01 08:31] LABS: POTASSIUM 4.9 mmol/L (3.5-5.1)
[2024-07-01 08:34] LABS: BLOOD UREA NITROGEN 27.3 mg/dL (7-18); CALCIUM 9.3 mg/dL (8.5-10.1)
[2024-07-01 08:37] LABS: CREATININE 0.8 mg/dL (0.55-1.3)
[2024-07-01 19:03] LABS: N-TERMINAL BNP 359.9 pg/ml (5-125)
[2024-07-02 06:46] LABS: HEMATOCRIT 32.4 % (32.4-45.2); HEMOGLOBIN 10.5 GM/dL (10.7-15.3); MCHC 32.5 g/dl (32.0-36.0); MEAN CELL VOLUME 92.4 fl (80-96); MEAN PLT VOLUME 7.8 fl (7.5-11.1); PLATELET COUNT 297 10^3/uL (134-434); RDW 14.5 % (11.6-15.6); WHITE BLOOD COUNT 12.5 K/mm3 (4.0-10.0)
[2024-07-02 07:13] LABS: POTASSIUM 4.8 mmol/L (3.5-5.1)
[2024-07-02 07:14] LABS: BLOOD UREA NITROGEN 24.1 mg/dL (7-18); CALCIUM 9.1 mg/dL (8.5-10.1)
[2024-07-02 07:15] LABS: MAGNESIUM 2.2 mg/dL (1.8-2.4)
[2024-07-02 07:18] LABS: CREATININE 0.7 mg/dL (0.55-1.3); PHOSPHOROUS 3.7 mg/dL (2.5-4.9)
[2024-07-02] MEDS: methylPREDNISolone NA SUCC 40 MG/1 ML VIAL IVPUSH SCH (10:59)
[2024-07-03 08:04] LABS: CALCIUM 8.8 mg/dL (8.5-10.1)
[2024-07-03 08:05] LABS: BLOOD UREA NITROGEN 29.5 mg/dL (7-18); MAGNESIUM 2.2 mg/dL (1.8-2.4)
[2024-07-03 08:08] LABS: CREATININE 0.7 mg/dL (0.55-1.3); PHOSPHOROUS 4.1 mg/dL (2.5-4.9)
[2024-07-03 08:16] LABS: HEMATOCRIT 31.1 % (32.4-45.2); HEMOGLOBIN 10.5 GM/dL (10.7-15.3); MCH 30.5 pg (25.7-33.7); MCHC 33.8 g/dl (32.0-36.0); MEAN CELL VOLUME 90.4 fl (80-96); MEAN PLT VOLUME 7.7 fl (7.5-11.1); PLATELET COUNT 283 10^3/uL (134-434); RBC 3.44 M/mm3 (3.60-5.2); RDW 14.1 % (11.6-15.6); WHITE BLOOD COUNT 9.2 K/mm3 (4.0-10.0)
[2024-07-04] MEDS: ACETAMINOPHEN 325 MG TABLET (FP) PO ONE (06:31)
[2024-07-04 07:25] LABS: POTASSIUM 4.9 mmol/L (3.5-5.1)
[2024-07-04 07:26] LABS: CALCIUM 8.7 mg/dL (8.5-10.1)
[2024-07-04 07:27] LABS: ALBUMIN 3.1 g/dl (3.4-5.0); BLOOD UREA NITROGEN 25.4 mg/dL (7-18)
[2024-07-04 07:30] LABS: CREATININE 0.6 mg/dL (0.55-1.3)
[2024-07-04 07:31] LABS: HEMATOCRIT 32.3 % (32.4-45.2); HEMOGLOBIN 10.5 GM/dL (10.7-15.3); MCH 30.2 pg (25.7-33.7); MCHC 32.6 g/dl (32.0-36.0); MEAN CELL VOLUME 92.4 fl (80-96); MEAN PLT VOLUME 7.7 fl (7.5-11.1); PLATELET COUNT 287 10^3/uL (134-434); RDW 14.4 % (11.6-15.6)
[2024-07-04 07:32] LABS: BILIRUBIN,TOTAL 0.2 mg/dL (0.2-1); TOT PROT 5.5 g/dl (6.4-8.2)
[2024-07-04 08:52] LABS: ANISOCYTOSIS 0; HELMET CELLS 0; HOWELL-JOLLY BODIES 0; MACROCYTOSIS 0; OVALOCYTE 0; ROULEAU 0; SICKELED CELLS 0; TARGET CELLS 0; TEAR DROP CELLS 0; TOXIC GRANULATION 0
[2024-07-04 15:33] VITALS: RESP 18
[2024-07-04 20:13] VITALS: TEMP 98.6
[2024-07-05 07:05] LABS: HEMATOCRIT 30.5 % (32.4-45.2); MCH 30.2 pg (25.7-33.7); MEAN CELL VOLUME 91.6 fl (80-96); MEAN PLT VOLUME 7.5 fl (7.5-11.1); PLATELET COUNT 256 10^3/uL (134-434); RBC 3.33 M/mm3 (3.60-5.2); RDW 14.3 % (11.6-15.6); WHITE BLOOD COUNT 10.6 K/mm3 (4.0-10.0)
[2024-07-05 07:21] LABS: POTASSIUM 4.2 mmol/L (3.5-5.1)
[2024-07-05 07:23] LABS: CALCIUM 8.4 mg/dL (8.5-10.1)
[2024-07-05 07:26] LABS: BLOOD UREA NITROGEN 25.1 mg/dL (7-18); MAGNESIUM 2.2 mg/dL (1.8-2.4)
[2024-07-05 07:31] LABS: CREATININE 0.7 mg/dL (0.55-1.3)
[2024-07-05] MEDS: predniSONE 20 MG TABLET (UD) PO SCH (09:12)
[2024-07-05] MEDS ORDERED: predniSONE 20 MG TABLET (UD) PO ONE (10:00)
[2024-07-05 15:20] VITALS: BP 113/86; PULSE 68
== END 2024-07-05 12:59 | disposition home or self-care (01) | DRG 191 ==
LOC: JER 20:13 → JERBED 23:18 → J4W 06-29 01:54
PROVIDERS: ADMIT Internal Medicine; ATTEND Internal Medicine
DX: J44.1 Chronic obstructive pulmonary disease with (acute) exacerbation (principal); J96.11 Chronic respiratory failure with hypoxia; I10 Essential (primary) hypertension; I25.10 Atherosclerotic heart disease of native coronary artery without angina pectoris; Z99.81 Dependence on supplemental oxygen; I25.2 Old myocardial infarction; F20.9 Schizophrenia, unspecified; F31.9 Bipolar disorder, unspecified; K59.00 Constipation, unspecified; R07.89 Other chest pain; F41.8 Other specified anxiety disorders
CPT/HCPCS: 0241U-QW; 36415; 36600; 71046-TC-FY; 74177-TC; 80048; 80053; 80061; 81003; 82803; 83036; 83605; 83735; 83880; 84100; 84443; 84484; 85025; 85027; 87070; 87205; 93005; 93010; 93306-TC; 94640; 97116-GP; 97162-GP; 99285-25; J0131

== ENCOUNTER 2025-01-23 11:43 | Inpatient (IN) | payer OTHER ==
[2025-01-23] MEDS ORDERED: methylPREDNISolone NA SUCC 125 MG/2 ML VIAL ONE (12:27)
[2025-01-23] MEDS ORDERED: ALBUTEROL SO4 2.5/IPRATROPIUM 0.5 INH SOL 3 ML VIAL.NEB. NEB ONE (12:27)
[2025-01-23] MEDS: methylPREDNISolone NA SUCC 125 MG/2 ML VIAL IVPUSH ONE (13:21)
[2025-01-23] MEDS: ALBUTEROL SO4 2.5/IPRATROPIUM 0.5 INH SOL 3 ML VIAL.NEB. NEB SCH (13:21)
[2025-01-23 13:35] LABS: BASO % 0.4 % (0-2.0); EOS % 2.1 % (0-4.5); HEMATOCRIT 37.2 % (32.4-45.2); HEMOGLOBIN 12.1 GM/dL (10.7-15.3); LYMPH % 33.4 % (8-40); MCH 29.8 pg (25.7-33.7); MCHC 32.6 g/dl (32.0-36.0); MEAN CELL VOLUME 91.4 fl (80-96); MEAN PLT VOLUME 7.9 fl (7.5-11.1); MONO % 7.1 % (3.8-10.2); PLATELET COUNT 280 10^3/uL (134-434); RBC 4.07 M/mm3 (3.60-5.2); RDW 15.3 % (11.6-15.6); WHITE BLOOD COUNT 7.2 K/mm3 (4.0-10.0)
[2025-01-23 13:36] LABS: VENOUS BASE EXCESS 1.7 mmol/L (-2-2); VENOUS O2 SATURATION 48.9 % (70-80); VENOUS PCO2 63.7 mmHg (38-52); VENOUS PH 7.288 (7.310-7.410)
[2025-01-23 13:41] LABS: INR 0.99 (0.83-1.09); PROTHROMBIN TIME (PATIENT) 10.9 SEC (9.7-13.0)
[2025-01-23 13:43] LABS: ACTIVATED PTT 33.5 SECONDS (25.2-36.5)
[2025-01-23 14:03] LABS: POTASSIUM 5.2 mmol/L (3.5-5.1)
[2025-01-23 14:07] LABS: CALCIUM 9.6 mg/dL (8.5-10.1)
[2025-01-23 14:08] LABS: BLOOD UREA NITROGEN 16.3 mg/dL (7-18); MAGNESIUM 2.3 mg/dL (1.8-2.4)
[2025-01-23 14:10] LABS: CREATININE 0.8 mg/dL (0.55-1.3)
[2025-01-23 14:11] LABS: BILIRUBIN,TOTAL 0.3 mg/dL (0.2-1); TOT PROT 7.2 g/dl (6.4-8.2)
[2025-01-23] MEDS ORDERED: MAGNESIUM 1GM/D5W - 1 GM/100 ML IVPB IVPB ONE (15:04)
[2025-01-23] MEDS: MAGNESIUM 1GM/D5W - 1 GM/100 ML IVPB IVPB ONE (15:24)
[2025-01-23] MEDS: SODIUM CHLORIDE 0.9% 500 ML INFUS.BAG IV ONE (15:24)
[2025-01-23] MEDS ORDERED: clonazePAM 0.5 MG TABLET ONE (15:31)
[2025-01-23] MEDS: clonazePAM 0.5 MG TABLET PO ONE (15:40)
[2025-01-23 20:14] LABS: N-TERMINAL BNP 61.9 pg/ml (5-125)
[2025-01-23] MEDS: clonazePAM 0.5 MG TABLET PO SCH (23:51)
[2025-01-23] MEDS: hydrOXYzine PAMOATE 25 MG CAPSULE (FP) PO SCH (23:51)
[2025-01-24 00:11] VITALS: BMI 26.7
[2025-01-24] MEDS: ALBUTEROL SO4 2.5/IPRATROPIUM 0.5 INH SOL 3 ML VIAL.NEB. NEB SCH (08:14)
[2025-01-24 09:13] LABS: HEMATOCRIT 33.5 % (32.4-45.2); HEMOGLOBIN 10.5 GM/dL (10.7-15.3); MCHC 31.3 g/dl (32.0-36.0); MEAN CELL VOLUME 92.8 fl (80-96); MEAN PLT VOLUME 7.5 fl (7.5-11.1); PLATELET COUNT 271 10^3/uL (134-434); RBC 3.61 M/mm3 (3.60-5.2); RDW 14.7 % (11.6-15.6); WHITE BLOOD COUNT 12.4 K/mm3 (4.0-10.0)
[2025-01-24 09:38] LABS: POTASSIUM 4.3 mmol/L (3.5-5.1)
[2025-01-24 09:43] LABS: ALBUMIN 3.6 g/dl (3.4-5.0); BLOOD UREA NITROGEN 17.9 mg/dL (7-18); CALCIUM 9.1 mg/dL (8.5-10.1)
[2025-01-24 09:47] LABS: CREATININE 0.7 mg/dL (0.55-1.3)
[2025-01-24 09:48] LABS: BILIRUBIN,TOTAL 0.3 mg/dL (0.2-1); TOT PROT 6.3 g/dl (6.4-8.2)
[2025-01-24] MEDS ORDERED: predniSONE 20 MG TABLET (UD) PO SCH (10:00)
[2025-01-24] MEDS: DOCUSATE SODIUM 100 MG CAPSULE (FP) PO SCH (10:32)
[2025-01-24] MEDS: amLODIPine BESYLATE 10 MG TABLET (FP) PO SCH (10:32)
[2025-01-24] MEDS: ENOXAPARIN NA (PORCINE) 40 MG/0.4 ML DISP.SYRIN SQ SCH (10:32)
[2025-01-24] MEDS: predniSONE 20 MG TABLET (UD) PO SCH ×3 (10:33→11:44)
[2025-01-24] MEDS: LOSARTAN POTASSIUM 50 MG TABLET PO SCH (10:33)
[2025-01-24] MEDS: CLOPIDOGREL BISULFATE 75 MG TABLET (FP) PO SCH (10:33)
[2025-01-24] MEDS ORDERED: ALBUTEROL SO4 HFA INHALER IH PRN (15:34)
[2025-01-24] MEDS: FLUTICASONE/UMECLIDIN/VILANTER(200-62.5-25 TRELEGY ELLIPTA) INAHLER IH SCH (15:51)
[2025-01-24] MEDS: ATORVASTATIN CA 40 MG TABLET (FP) PO SCH (21:04)
[2025-01-24] MEDS: guaiFENesin 200 MG/10 ML 10 ML UNIT-DOSE CUPS PO ONE (21:04)
[2025-01-25 09:58] LABS: HEMOGLOBIN 11.4 GM/dL (10.7-15.3); MCH 29.4 pg (25.7-33.7); MCHC 31.6 g/dl (32.0-36.0); MEAN CELL VOLUME 93.1 fl (80-96); MEAN PLT VOLUME 7.7 fl (7.5-11.1); PLATELET COUNT 276 10^3/uL (134-434); RBC 3.86 M/mm3 (3.60-5.2); RDW 15.1 % (11.6-15.6)
[2025-01-25 12:44] VITALS: BP 123/66; PULSE 84; RESP 19; TEMP 97.9
== END 2025-01-25 13:54 | disposition home health service (06) | DRG 191 ==
LOC: JER 11:43 → JERBED 19:25 → OBSVTOIN 20:59 → J5S 22:37
PROVIDERS: ADMIT Student in an Organized Health Care Education/Training Program
DX: J44.1 Chronic obstructive pulmonary disease with (acute) exacerbation (principal); J96.10 Chronic respiratory failure, unspecified whether with hypoxia or hypercapnia; E78.5 Hyperlipidemia, unspecified; I10 Essential (primary) hypertension; J84.10 Pulmonary fibrosis, unspecified; I25.10 Atherosclerotic heart disease of native coronary artery without angina pectoris; F20.9 Schizophrenia, unspecified; R91.1 Solitary pulmonary nodule; K57.90 Diverticulosis of intestine, part unspecified, without perforation or abscess without bleeding; F41.8 Other specified anxiety disorders; I25.2 Old myocardial infarction; K59.00 Constipation, unspecified; R21 Rash and other nonspecific skin eruption; Z95.5 Presence of coronary angioplasty implant and graft; Z99.81 Dependence on supplemental oxygen
CPT/HCPCS: 0241U-QW; 36415; 71045-TC-FY; 71275-TC; 80053; 82803; 83735; 83880; 84484; 85025; 85027; 85610; 85730; 93005; 93010; 94640; 94761; 97116-GP; 97161-GP; 99285-25; G0378; Q9967